=== PATIENT | male | born 1990 | race Caucasian/White ===

== ENCOUNTER 2017-09-17 02:51 | Observation (INO) ==
[2017-09-17] MEDS ORDERED: HYDROmorphone 2 MG/1 ML VIAL IV STA (03:30)
[2017-09-17] MEDS ORDERED: HYDROmorphone 2 MG/1 ML VIAL ONE (04:08)
[2017-09-17 04:19] LABS: Basophils # 0.1 10*3/uL (0.0-0.2); Basophils % 0.7 % (0.0-0.8); Eosinophils # 0.4 10*3/uL (0.0-0.87); Eosinophils % 2.6 % (0.00-10.9); Hematocrit 40.6 VOL% (42.0-52.0); Hemoglobin 13.8 GM/DL (14.0-18.0); Immature Granulocytes % 0.4 %; Immature Granulocytes Absolute 0.05 #; Lymphocytes # 5.2 10*3/uL (1.4-4.0); Lymphocytes % 38.2 % (21.2-54.2); Mean Corpuscular Hemoglobin 31 PG (27-34); Mean Corpuscular Volume 89.8 FL (87-102); Mean Platelet Volume 10.7 FL (9.6-12.0); Monocytes # 0.9 10*3/uL (0.11-0.8); Monocytes % 6.8 % (1.7-12.7); Neutrophils # 7.1 10*3/uL (1.4-7.4); Neutrophils % 51.3 % (38.7-73.9); Platelet Count 313 T/CUMM (130-400); Red Blood Count 4.52 MC/CUMM (3.8-5.5); White Blood Count 13.7 T/CUMM (4-12)
[2017-09-17 04:35] LABS: Osmolality,Calculated 275.5 MOS/KG (273-304); Potassium 3.9 MMOL/L (3.5-5.1)
[2017-09-17] MEDS ORDERED: BUPIVACAINE 0.25% 50 ML VIAL ONE (08:22)
[2017-09-17] MEDS ORDERED: MIDAZOLAM 2 MG/2 ML VIAL ONE (09:28)
[2017-09-17] MEDS ORDERED: PROPOFOL 200 MG/20 ML VIAL IV ONE (09:28)
[2017-09-17] MEDS ORDERED: fentaNYL 100 MCG/2 ML VIAL ONE (09:28)
[2017-09-17] MEDS ORDERED: SEVOFLURANE 1 UNIT/15 MINUTE INH ONE (09:28)
[2017-09-17] MEDS ORDERED: LACTATED RINGERS 1,000 ML IV ONE (09:29)
[2017-09-17] MEDS ORDERED: ONDANSETRON 4 MG/2 ML VIAL ONE (09:32)
[2017-09-17] MEDS ORDERED: MORPHINE 10 MG/1 ML VIAL IV PRN (10:34)
[2017-09-17] MEDS ORDERED: ONDANSETRON 4 MG/2 ML VIAL IV PRN (10:34)
[2017-09-17] MEDS ORDERED: ACETAMINOPHEN 325 MG TABLET PO PRN (10:34)
[2017-09-17] MEDS: CLINDAMYCIN INJ 900 MG in PREMIX 1 EACH IV SCH ×2 (15:44→20:54)
[2017-09-17] MEDS: DOCUSATE SODIUM 100 MG CAPSULE PO SCH (20:54)
[2017-09-18] MEDS: CLINDAMYCIN INJ 900 MG in PREMIX 1 EACH IV SCH ×2 (02:43→12:03)
[2017-09-18] MEDS: DOCUSATE SODIUM 100 MG CAPSULE PO SCH (08:33)
[2017-09-18] MEDS ORDERED: PANTOPRAZOLE 40 MG TABLET PO SCH (09:00)
[2017-09-18 16:32] VITALS: BP 121/63
== END 2017-09-18 16:04 | disposition home or self-care (01) ==
LOC: N.ED 02:51 → N.3E 08:40 → INTOOBSV 10:18 → N.3E 10:18
PROVIDERS: ADMIT Surgery; ATTEND Surgery